=== PATIENT | male | born 1995 | race Caucasian/White ===

== ENCOUNTER 2017-01-12 01:03 | Emergency (ER) | payer SELFPAY ==
[2017-01-12 01:41] LABS: BASOPHIL 0.1 % (0-2); EOSINOPHIL 0.2 % (0-5); HCT 40.9 % (42.0-52.0); HGB 13.3 g/dl (13.2-18.0); LYMPHOCYTE 8.1 % (15-48); MCH 31.1 pg (25.0-31.0); MCHC 32.5 g/dL (32.0-36.0); MCV 95.6 fL (78.0-100.0); MONOCYTE 3.7 % (0-12); MPV 9.1 fL (6.0-9.5); NEUTROPHIL 87.9 % (41-80); PLT 348 K/uL (150-400); RBC 4.28 M/uL (4.70-6.00); RDW 12.9 % (11.5-14.0)
[2017-01-12 01:43] LABS: WBC 33.7 K/uL (4.0-10.5)
[2017-01-12 01:58] LABS: ACETAMINOPHEN (TYLENOL) < 5.0 ug/mL (10.0-30.0); ALCOHOL (ETOH) MEDICAL NONE DETECTED; SALICYLATE < 6 ug/mL (0-300)
[2017-01-12 01:59] LABS: ALBUMIN 4.4 g/dL (3.5-5.0); BILIRUBIN - TOTAL 0.2 mg/dL (0.1-1.0); CREATININE 1.3 mg/dL (0.7-1.2); GLOBULIN (CALCULATION) 3.3 g/dL (2.2-4.2); TOTAL PROTEIN 7.7 g/dL (6.4-8.3)
[2017-01-12 02:56] LABS: LACTIC ACID 10.9 mmol/L (0.5-2.2)
[2017-01-12 02:58] LABS: CKMB 3.27 ng/mL (0.97-4.94); TROPONIN T 0.027 ng/mL
[2017-01-12 04:21] LABS: BILIRUBIN NEGATIVE (NEGATIVE); BLOOD NEGATIVE Ery/uL (NEGATIVE); CLARITY CLEAR (CLEAR); COLOR YELLOW (YELLOW); GLUCOSE (U) 2+ mg/dL (NORMAL); KETONE (U) NEGATIVE (NEGATIVE); LEUKOCYTES NEGATIVE Leu/uL (NEGATIVE); NITRITE NEGATIVE (NEGATIVE); PROTEIN TRACE (LOW) mg/dL (NEGATIVE); SPECIFIC GRAVITY 1.025 (1.001-1.030); UROBILINOGEN 0.2 mg/dL (0.2-1.0)
[2017-01-12 04:31] LABS: AMPHETAMINES POSITIVE (NEGATIVE); BARBITURATES NEGATIVE (NEGATIVE); BENZODIAZEPINES NEGATIVE (NEGATIVE); COCAINE NEGATIVE (NEGATIVE); MARIJUANA (THC) POSITIVE (NEGATIVE); METHADONE NEGATIVE (NEGATIVE); TRICYCLIC ANTIDEPRESSANT NEGATIVE (NEGATIVE)
== END 2017-01-12 10:31 | disposition left against medical advice (07) ==
LOC: EDBD 01:03 → FER 01:03
PROVIDERS: Emergency Medicine Emergency Medical Services
DX: T40.1X1A Poisoning by heroin, accidental (unintentional), initial encounter (principal); J18.9 Pneumonia, unspecified organism; R00.0 Tachycardia, unspecified
CPT/HCPCS: 36415; 36600; 71010; 71275; 80053; 80074; 80305; 81001; 82550; 82553; 82803; 83605; 83880; 84484; 85025; 85379; 87040; 87088; 93005; G0480; J2060; J2405; J3370; Q9967